=== PATIENT | female | born 1995 | race Two or more races ===

== ENCOUNTER → 2016-10-16 | Outpatient (CLI) | payer BC ==
--- NOTE | ~2016-10-16 | HM ---
Unit #: [id number] #: [id number] Patient: CARLOS ALBERTO LOCO [id number] [address] [address] [id number] MR#: [id number] NAME: CARLOS ALBERTO LOCO : 1995 SEX: F STUDY DATE/TIME: 10/16/2016 UNIT: [facility] ROOM: STUDY DESCRIPTION: Attending Physician: Anu Mendoza M.D. Referring Physician: Anu Mendoza M.D. Primary Care Physician: Cachorro Deutsch CARDIOLOGY REPORT EXAM 24-hour Holter monitor. DATE APPLIED 10/16/2016 DATE SCANNED 10/20/[address] Jose Og ORDERED BY Dr. Anu Mendoza REASON FOR STUDY Chest pain. FINDINGS A 24-hour Holter Monitor reveals the followin. Underlying rhythm is normal sinus. There is marked sinus arrhythmia. Heart rate varies from a minimum of 45 beats per minute seen at 6:23 a.m. to a maximal heart rate of 168 beats per minute, sinus in origin seen at 2:23 p.m. 2. Very rare isolated premature atrial contractions are noted. 3. Rare premature atrial couplets are seen. 4. No premature ventricular contractions were recorded. 5. There is no AV block, sinus arrest, or sinus pause. 6. The patient did not report any symptom or activity diary. IMPRESSION A 24-hour ambulatory monitoring is within normal limits with periods of sinus rhythm and sinus tachycardia. Dictated by... Emily Scott/lainey Unit #: [id number] #: [id number] Patient: CARLOS ALBERTO LOCO TD: 10/25/2016 15:39 JOB #: [id number] CARDIOLOGY REPORT Page 1 of 1 X Jose Og MD HOLTER MONITOR REPORT
== END | disposition home or self-care (01) ==
LOC: CEKG 10:35
DX: R79.89 Other specified abnormal findings of blood chemistry (principal); R07.9 Chest pain, unspecified; F41.9 Anxiety disorder, unspecified; R05 Cough; R82.90 Unspecified abnormal findings in urine
CPT/HCPCS: 93225; 93226